=== PATIENT | female | born 1980 | race American Indian/Alaskan Native ===

== ENCOUNTER 2017-09-19 11:00 | Inpatient (IN) | payer BC ==
[2017-09-28] MEDS ORDERED: TRANSDERM-SCOP TD NR (06:30)
--- NOTE | 2017-09-28 06:58 | Anesthesia Consultation ---
Anesthesia Consult and Med Hx Date of service: 09/28/17 - Airway Anesthetic Teeth Evaluation: Good ROM Head & Neck: Adequate Mental/Hyoid Distance: Adequate Mallampati Class: Class II Intubation Access Assessment: Probably Good - Pulmonary Exam CTA: Yes - Cardiac Exam Cardiac Exam: RRR - Pre-Operative Health Status ASA Pre-Surgery Classification: ASA3 Proposed Anesthetic Plan: General - Pulmonary Hx Smoking: Yes (2 cigarettes per day x 20yrs, quit 2012) Hx Pneumonia: Yes (April 2017) Hx Sleep Apnea: Yes (Sleep study while having pneumonia ?) - Central Nervous System Hx Psychiatric Problems: No - Hematic Hx Anemia: Yes - Other Systems Hx Alcohol Use: No Hx Substance Use: No Hx Cancer: No Hx Obesity: Yes (sp gastric sleeve '14)
--- NOTE | 2017-09-28 06:58 | Anesthesia Day of Surgery ---
Anesthesia Day of Surgery - Day of Surgery Patient Examined: Yes Patient H&P Reviewed: Yes Patient is NPO: Yes
[2017-09-28] MEDS ORDERED: ANCEF/STERILE WATER 2 GM/20 ML IV NR (07:00)
[2017-09-28] MEDS ORDERED: VERSED IV NR (07:00)
[2017-09-28] MEDS ORDERED: FLAGYL 500 MG/100 ML 500 MG/100 ML BAG IV NR (07:00)
[2017-09-28] MEDS ORDERED: PEPCID IV NR (07:00)
[2017-09-28] MEDS ORDERED: LOVENOX SUB-Q NR (07:00)
[2017-09-28] MEDS ORDERED: NACL BACTERIOSTATIC INFILTRATI ONE (07:06)
[2017-09-28] MEDS ORDERED: WATER FOR IRRIG STERILE IR ONE (07:11)
[2017-09-28] MEDS: LACTATED RINGERS 1,000 ML IV SCH ×3 (07:15→17:10)
[2017-09-28] MEDS ORDERED: ADRENALIN ONE (07:21)
[2017-09-28] MEDS ORDERED: MARCAINE 0.5% 30 ML INFILTRATI ONE (07:21)
[2017-09-28] MEDS ORDERED: XYLOCAINE 1% 20 mL ONE ×2 (07:21→07:23)
[2017-09-28] MEDS ORDERED: XYLOCAINE MPF 2% ONE (07:25)
[2017-09-28] MEDS ORDERED: SUBLIMAZE ONE (07:26)
[2017-09-28] MEDS ORDERED: DIPRIVAN 10 MG/ML IV ONE (07:27)
[2017-09-28] MEDS ORDERED: QUELICIN ONE (07:28)
[2017-09-28 07:43] LABS: White Blood Count 7.8 K/mm3 (4.5-11.0)
[2017-09-28 07:44] LABS: Basophils % (Auto) 0.9 % (0.0-1.8); Eosinophils % (Auto) 2.6 % (0.0-4.3); Hematocrit 28.5 % (30.3-42.9); Hemoglobin 8.9 gm/dl (10.1-14.3); Mean Corpuscular HGB Conc 31 % (30-34); Mean Corpuscular Hemoglobin 20 pg (28-32); Mean Corpuscular Volume 65 fl (79-97); Platelet Count 379 K/mm3 (140-440); Red Blood Count 4.38 M/mm3 (3.65-5.03); Red Cell Distribution Width 18.5 % (13.2-15.2)
[2017-09-28 07:50] LABS: Alanine Aminotransferase 8 units/L (7-56); Albumin 3.6 g/dL (3.9-5); Albumin/Globulin Ratio 0.8 %; Alkaline Phosphatase 76 units/L (35-129); Anion Gap 18 mmol/L; BUN/Creatinine Ratio 15; Blood Urea Nitrogen 9 mg/dL (7-17); Calcium 8.5 mg/dL (8.4-10.2); Carbon Dioxide 23 mmol/L (22-30); Chloride 101.2 mmol/L (98-107); Glucose 81 mg/dL (65-100); Potassium 3.7 mmol/L (3.6-5.0); Sodium 138 mmol/L (137-145); Total Protein 7.9 g/dL (6.3-8.2)
[2017-09-28] MEDS ORDERED: APRESOLINE IV PRN (08:10)
[2017-09-28] MEDS ORDERED: MYLICON PO PRN (08:10)
[2017-09-28] MEDS ORDERED: DILAUDID IV PRN ×3 (08:10→23:00)
[2017-09-28] MEDS ORDERED: ZOFRAN IV PRN (08:10)
[2017-09-28] MEDS ORDERED: NACL 0.9% IR ONE (08:59)
[2017-09-28] MEDS ORDERED: NACL 0.9% 1000 ML IR ONE (09:00)
[2017-09-28] MEDS ORDERED: XYLOCAINE 1% 20 mL INFILTRATI ONE (09:00)
[2017-09-28] MEDS ORDERED: MARCAINE 0.5% INFILTRATI ONE (09:00)
[2017-09-28] MEDS ORDERED: ADRENALIN IV ONE (09:00)
[2017-09-28] MEDS ORDERED: ANCEF/NS 1 GM/50 ML 1 GM/50 ML BAG IV SCH (09:00)
[2017-09-28] MEDS ORDERED: ZEMURON IV ONE (09:04)
[2017-09-28] MEDS ORDERED: DILAUDID ONE (09:05)
[2017-09-28] MEDS ORDERED: NEO SYNEPHRINE/NS Syringe(OR USE) IV ONE (10:00)
[2017-09-28] MEDS ORDERED: ROBINUL ONE (10:08)
[2017-09-28] MEDS ORDERED: NEOSTIGMINE ONE (10:08)
--- NOTE | 2017-09-28 11:30 | Post Anesthesia Evaluation ---
- Post Anesthesia Evaluation Patient Participated: Yes Airway Patent: Yes Stable Respiratory Function: Yes Temp > 96.8F: Yes Pain Manageable: Yes Adequeate Hydration: Yes Anesthesia Complications: No Block Receding Appropriately: Not Applicable
--- NOTE | 2017-09-28 13:04 | Operative Report ---
Operative Report Operative Report: Operative Report DATE OF PROCEDURE: 09/28/17 SURGEON: Alessio Ness M.D. LEGISLATIVE AIDE: PREOPERATIVE DIAGNOSIS: Morbid obesity. POSTOPERATIVE DIAGNOSES: Morbid obesity PROCEDURES PERFORMED: 1. Laparoscopic gastric bypass. 2. EGD. ANESTHESIA: General endotracheal tube intubation. SPECIMENS: None. ESTIMATED BLOOD LOSS: Less than 10 mL. FINDINGS: Normal anatomy. COMPLICATIONS: None. INDICATION: is a 37-year-old female with history of morbid obesity and history of sleeved gastrectomy of which she has had sub-optimal weight loss. She signed informed consent and expressed understanding of risks and benefits. DESCRIPTION OF PROCEDURE: Patient was brought to the OR suite, laid in supine position. Bilateral lower extremity SCDs were placed. General anesthesia was induced via successful endotracheal tube intubation. Patient's abdomen was prepped and draped in sterile fashion. Using Optiview technique, a 12-mm trocar was placed into the abdominal cavity under direct vision. There was noted to be no gross injury to any intraabdominal structures. 4 working trocars were placed under direct visualization, 12 mm in the right mid abdomen mid clavicular line and three 5-mm trocars in the right upper quadrant, epigastric, left upper quadrant. At this time, the ligament of Treitz identified and followed down approximately 30 cm and the jejunum was transected. The distal segment of jejunum was then traced for approximately 75 cm and a stable [id number] jejunojejunostomy was performed. The common enterotomy was closed with 2 firings of the endoscopic stapler. The mesenteric defect was closed with running Surgidac suture. This anastomosis was found to be patent without kink, obstruction or bleeding. At this time, the patient was placed in steep reverse Trendelenburg position. A liver retractor was placed through the epigastric port to elevate the left lateral lobe of the liver. A small gastric pouch was formed in the proximal sleeved stomach with blue loads of the endoscopic stapler. The [place] limb was then brought in an antegastric antecolic fashion and secured with 2 stay sutures to the gastric pouch. After this, the enterotomies were made with Harmonic scalpel, and a [id number]-va-hxbe stapled gastrojejunostomy was performed with a mechanical stapler. After this, a 2-layer running closure using aborbable v-lock suture were done, the first being mucosal approximation prior to completion of the first layer. The anesthesia passed and an EGD scope beyond the anastomosis to act as a stent. The first layer was completed, the second was then performed. After this, the EGD was retracted slightly. A bowel clamp was placed in a proximal Smitha limb. The anastomosis was submerged under saline. Via intraluminal EGD insufflation, there was noted be no bubbles in the saline indicating an airtight anastomosis. There was noted to be no obstruction or bleeding intraluminally in the pouch or the anastomosis. At this time, the scope was removed. The saline was aspirated. Tiseel was placed over the anastomosis. All trocars were removed under direct visualization and the abdomen was then desufflated. The skin incisions were closed with 4-0 Monocryl followed by Dermabond dressings. Patient was awoken and taken to recovery in stable condition. All counts were correct.
[2017-09-28] MEDS: TORADOL IV SCH ×3 (14:10→19:55)
[2017-09-28] MEDS: REGLAN IV PRN ×2 (14:25→19:55)
[2017-09-28] MEDS: LOVENOX SUB-Q SCH (16:43)
[2017-09-28] MEDS: FLAGYL 500 MG/100 ML 500 MG/100 ML BAG IV SCH (16:50)
[2017-09-28] MEDS: NORCO PO PRN (18:26)
[2017-09-28] MEDS: ceFAZolin 1 GM in NACL 0.9% 20 ML IV SCH (19:26)
[2017-09-29] MEDS: LACTATED RINGERS 1,000 ML IV SCH (00:28)
[2017-09-29] MEDS: FLAGYL 500 MG/100 ML 500 MG/100 ML BAG IV SCH ×2 (00:28→09:45)
[2017-09-29] MEDS: NORCO PO PRN ×2 (00:36→14:51)
[2017-09-29] MEDS: ceFAZolin 1 GM in NACL 0.9% 20 ML IV SCH ×2 (00:44→10:38)
[2017-09-29] MEDS: TORADOL IV SCH ×3 (00:50→12:25)
[2017-09-29 02:10] LABS: Alanine Aminotransferase 9 units/L (7-56); Albumin/Globulin Ratio 0.9 %; Alkaline Phosphatase 64 units/L (35-129); Anion Gap 17 mmol/L; BUN/Creatinine Ratio 10; Basophils % (Auto) 0.3 % (0.0-1.8); Blood Urea Nitrogen 6 mg/dL (7-17); Calcium 8.1 mg/dL (8.4-10.2); Carbon Dioxide 22 mmol/L (22-30); Chloride 101.3 mmol/L (98-107); Eosinophils % (Auto) 0.3 % (0.0-4.3); Glucose 91 mg/dL (65-100); Hematocrit 24.7 % (30.3-42.9); Hemoglobin 7.7 gm/dl (10.1-14.3); Mean Corpuscular HGB Conc 31 % (30-34); Platelet Count 332 K/mm3 (140-440); Potassium 3.9 mmol/L (3.6-5.0); Red Blood Count 3.79 M/mm3 (3.65-5.03); Red Cell Distribution Width 18.1 % (13.2-15.2); Sodium 136 mmol/L (137-145); Total Protein 6.5 g/dL (6.3-8.2); White Blood Count 10.4 K/mm3 (4.5-11.0)
[2017-09-29 02:24] LABS: Mean Corpuscular Hemoglobin 20 pg (28-32); Mean Corpuscular Volume 65 fl (79-97)
[2017-09-29 08:55] VITALS: BP 138/84
[2017-09-29] MEDS: LOVENOX SUB-Q SCH ×2 (08:58→10:42)
--- NOTE | 2017-09-29 16:25 | Discharge Summary ---
Providers - Providers Date of Admission: 09/28/17 05:57 Attending physician: DIOGO SUAREZ Primary care physician: WALTER JARQUIN Hospitalization Reason for admission: Surgery Condition: Good Procedures: S/P laparoscopic gastric sleeve converted to bypass. Hospital course: Patient underwent a laparoscopic gastric sleeve converted to bypass with no complications. She was monitored overnight with no complaints. She denies nasuea or vomiting. She tolerated liquids well. She denies sob or chest pain. Her pain was controlled prior to discharge. Patient did not get out-patient pain medication filled, and she stated that she will fill this prescription despite possibly having to wait a day or two to be filled. She did not want an alternate pill form to go home with today. Pt does have a hx of anemia. She presented with Hgb in the 8's. At time of discharge her Hb was 7.7- likely dilutional. No other acute signs or symptoms of bleeding Disposition: DC-01 TO HOME OR SELFCARE Core Measure Documentation - Palliative Care Palliative Care/ Comfort Measures: Not Applicable - Core Measures Any of the following diagnoses?: none Exam - Constitutional Vitals: Temp Pulse Resp BP Pulse Ox 98.7 F 73 18 138/84 100 09/29/17 08:52 09/29/17 08:52 09/29/17 08:52 09/29/17 08:52 09/29/17 08:52 General appearance: Present: no acute distress - Respiratory Respiratory effort: normal - Abdominal General gastrointestinal: Present: soft, non-tender, non-distended, other ( incision sites cdi. ) Female genitourinary: Present: deferred - Rectal Rectal Exam: deferred - Integumentary Integumentary: Present: clear, warm, dry - Psychiatric Psychiatric: appropriate mood/affect, intact judgment & insight, memory intact, cooperative - Additional findings Additional findings: Incision sites were clean, dry and intact. Plan Activity: other (Can begin walking for exercise. No abdominal exercises for 6 weeks. ) Diet: other (follow surgery packet recommendations) Wound: per your surgeon's advice Special Instructions: no heavy lifting Additional Instructions: follow-up for wound check in office. Follow up with: WALTER JARQUIN MD [Primary Care Provider] - 7 Days
== END 2017-09-29 19:32 | disposition home or self-care (01) | DRG 620 ==
LOC: 3A 09-28 05:57 → 3B-SURG 09-28 11:34
PROVIDERS: ADMIT Surgery; ATTEND Specialist
PROC: 0D164ZA Bypass Stomach to Jejunum, Percutaneous Endoscopic Approach (ICD-10-PCS; principal; 2017-09-28)
PROC: 0DJ08ZZ Inspection of Upper Intestinal Tract, Via Natural or Artificial Opening Endoscopic (ICD-10-PCS; 2017-09-28)
DX: E66.01 Morbid (severe) obesity due to excess calories (principal); E44.0 Moderate protein-calorie malnutrition; Z68.43 Body mass index [BMI] 50.0-59.9, adult; K30 Functional dyspepsia; K21.9 Gastro-esophageal reflux disease without esophagitis; F32.9 Major depressive disorder, single episode, unspecified; G43.909 Migraine, unspecified, not intractable, without status migrainosus; Z71.3 Dietary counseling and surveillance; Z88.5 Allergy status to narcotic agent; Z87.891 Personal history of nicotine dependence; Z87.01 Personal history of pneumonia (recurrent); Z82.49 Family history of ischemic heart disease and other diseases of the circulatory system; Z83.3 Family history of diabetes mellitus
CPT/HCPCS: 36415; 80053; 81025; 85025; 94760; C9250; J0171; J0330; J0690; J1170; J1650; J1885; J2250; J2370; J2405; J2704; J2710; J2765; J3010; J7030; J7120

== ENCOUNTER 2017-09-22 06:51 | Day surgery (SDC) | payer BC ==
[2017-09-22] MEDS ORDERED: DIPRIVAN 10 MG/ML IV ONE (07:56)
--- NOTE | 2017-09-22 08:35 | Anesthesia Day of Surgery ---
Anesthesia Day of Surgery - Day of Surgery Patient Examined: Yes Patient H&P Reviewed: Yes Patient is NPO: Yes
--- NOTE | 2017-09-22 08:35 | Anesthesia Consultation ---
Anesthesia Consult and Med Hx Date of service: 09/22/17 - Airway Anesthetic Teeth Evaluation: Good (upper and lower braces) ROM Head & Neck: Adequate Mental/Hyoid Distance: Adequate Mallampati Class: Class II - Pulmonary Exam CTA: Yes - Cardiac Exam Cardiac Exam: RRR - Pre-Operative Health Status ASA Pre-Surgery Classification: ASA3 Proposed Anesthetic Plan: MAC - Pulmonary Hx Smoking: Yes (2 cigarettes per day x 20yrs, quit 2012) Hx Pneumonia: Yes (April 2017) Hx Sleep Apnea: Yes (Sleep study while having pneumonia ?) - Other Systems Hx Obesity: Yes (sp gastric sleeve '14) - Additional Comments Anesthesia Medical History Comments: NAC
[2017-09-22] MEDS ORDERED: PEPCID IV ONE (08:43)
[2017-09-22] MEDS ORDERED: NACL 0.9% 1000 ML 1,000 ML IV SCH ×2 (09:00→10:00)
[2017-09-22] MEDS ORDERED: XYLOCAINE MPF 2% ONE (10:00)
--- NOTE | 2017-09-22 10:06 | Discharge Summary ---
Providers - Providers Date of discharge: 09/22/17 Attending physician: MYNOR WHITE Primary care physician: WALTER JARQUIN Hospitalization Condition: Good Procedures: EGD Disposition: DC-01 TO HOME OR SELFCARE Core Measure Documentation - Palliative Care Palliative Care/ Comfort Measures: Not Applicable - Core Measures Any of the following diagnoses?: none Exam - Physical Exam Narrative exam: UNCHANGED FROM PRE-OP - Constitutional Vitals: Temp Pulse Resp BP Pulse Ox 97.8 F 77 14 123/77 99 09/22/17 09:14 09/22/17 09:14 09/22/17 09:14 09/22/17 09:14 09/22/17 09:14 Plan Activity: no restrictions Diet: regular Follow up with: WALTER JARQUIN MD [Primary Care Provider] - 7 Days
--- NOTE | 2017-09-22 10:12 | Operative Report ---
Operative Report Operative Report: OPERATIVE REPORT - EGD DATE 09/22/17 SURGERY: Upper endoscopy. SURGEON: Alessio Ness M.D. WOOLEN TESTER: Lynne Lawson MD PRE OP DX: dyspepsia POST OP DX: hiatal hernia TYPE OF ANESTHESIA: MAC. ESTIMATED BLOOD LOSS: None. COMPLICATIONS: None. SPECIMENS REMOVED: None. FINDINGS: 1. Normal sleeved stomach with some narrowing at the incisura 2. Otherwise, normal esophagus, stomach and first portion of duodenum. INDICATIONS:INDICATION FOR PROCEDURE: Patient is a 37-year-old female with a long history of morbid obesity and hx of gastric sleeve. She is planned to have conversion to gastric bypass and is here for preoperative planning EGD. PROCEDURE DETAILS: After consent was reviewed, patient was taken back to the operating room where patient was placed in the left lateral decubitus position and a bite block was placed in the mouth. After a time-out was called, MAC anesthesia was initiated. I then passed the endoscope into her oropharynx, into her esophagus, visualized the entire esophagus, which was all within normal limits. I then visualized the stomach which was of a normal narrowed calibur given her history of gastric sleeve. It seemed a bit more narrow at the level of the incusura but not obstructing. The first portion of the duodenum was seen and there were no abnormalities I could clearly visualize. I then desufflated the stomach and removed the endoscope. Patient tolerated procedure well and was transferred to recovery room in good and stable condition.
[2017-09-22] MEDS ORDERED: WATER FOR IRRIG STERILE IR ONE (10:23)
[2017-09-22 11:13] VITALS: BP 141/90
--- NOTE | 2017-09-22 11:58 | Post Anesthesia Evaluation ---
- Post Anesthesia Evaluation Patient Participated: Yes Airway Patent: Yes Stable Respiratory Function: Yes Nausea/Vomiting: No Temp > 96.8F: Yes Pain Manageable: Yes Adequeate Hydration: Yes Anesthesia Complications: No Block Receding Appropriately: Not Applicable Patient on Ventilator: No
== END 2017-09-22 06:52 | disposition home or self-care (01) ==
LOC: GIO 06:51
PROVIDERS: ATTEND Surgery
DX: K30 Functional dyspepsia (principal); K44.9 Diaphragmatic hernia without obstruction or gangrene; K21.9 Gastro-esophageal reflux disease without esophagitis; E66.01 Morbid (severe) obesity due to excess calories; Z68.43 Body mass index [BMI] 50.0-59.9, adult; Z83.3 Family history of diabetes mellitus; Z98.890 Other specified postprocedural states; Z98.84 Bariatric surgery status; Z87.891 Personal history of nicotine dependence; Z79.899 Other long term (current) drug therapy; Z88.5 Allergy status to narcotic agent
CPT/HCPCS: 43235; 81025; J2704; J7030